=== PATIENT | female | born 1980 | race Asian ===

== ENCOUNTER 2016-08-29 06:54 | Inpatient (IN) | payer BC ==
[~2016-08-29] VITALS: Ht 157.5 cm; Wt 67.0 kg
[2016-08-29] MEDS ORDERED: OXYTOCIN 30U/ 0.9% NaCL 500ML 500 ML IV ONE (07:19)
[2016-08-29] MEDS ORDERED: LACTATED RINGERS 1,000 ML IV SCH (07:19)
[2016-08-29] MEDS ORDERED: OXYTOCIN 30U/ 0.9% NaCL 500ML 500 ML ONE ×2 (07:28→09:09)
[2016-08-29] MEDS ORDERED: NEWBORN KIT ONE (07:28)
[2016-08-29] MEDS ORDERED: MISOPROSTOL 200 MCG TABLET ONE (07:28)
[2016-08-29] MEDS ORDERED: FENTANYL PF 100 MCG/2ML IVPush PRN (07:30)
[2016-08-29 08:28] VITALS: BP 135/85
[2016-08-29] MEDS ORDERED: HYDROcodone/APAP 5/325 TABLET PO PRN ×2 (08:30)
[2016-08-29] MEDS ORDERED: MISOPROSTOL 200 MCG TABLET PR PRN (08:30)
[2016-08-29] MEDS ORDERED: PLEASE ENTER HEIGHT AND WEIGHT MC SCH (08:30)
[2016-08-29] MEDS ORDERED: DOCUSATE 100 MG CAPSULE PO PRN (08:30)
[2016-08-29] MEDS ORDERED: ONDANSETRON 2MG/ML, 2ML IV PRN (08:30)
[2016-08-29] MEDS ORDERED: PLEASE ENTER ALLERGIES MC SCH ×2 (08:30)
[2016-08-29] MEDS ORDERED: METHYLERGONOVINE 0.2 MG/ML IM PRN (08:30)
[2016-08-29] MEDS: PRENATAL VIT/IRON/FA 1 EACH TABLET PO SCH (09:00)
[2016-08-29] MEDS: OXYTOCIN 30U/ 0.9% NaCL 500ML 500 ML IV SCH ×2 (09:38→18:02)
[2016-08-29] MEDS ORDERED: IBUPROFEN 600 MG TABLET ONE (09:41)
[2016-08-29] MEDS: IBUPROFEN 600 MG TABLET PO PRN ×2 (09:47→17:14)
[2016-08-29 10:35] VITALS: BP 125/92
[2016-08-29 12:00] VITALS: BP 127/74
[2016-08-29 15:53] VITALS: BP 109/65
[2016-08-29 20:39] VITALS: BP 122/76
[2016-08-30 01:20] VITALS: BP 108/71
[2016-08-30 03:56] VITALS: BP 117/71
[2016-08-30] MEDS: OXYTOCIN 30U/ 0.9% NaCL 500ML 500 ML IV SCH ×2 (04:02→14:02)
[2016-08-30 07:30] VITALS: BP 109/71
[2016-08-30] MEDS: PRENATAL VIT/IRON/FA 1 EACH TABLET PO SCH (09:02)
[2016-08-30 20:00] VITALS: BP 117/76
== END 2016-08-30 21:20 | disposition home or self-care (01) | DRG 775 ==
LOC: LDOP 06:54 → LDIP 07:23 → 2NW 10:17
PROVIDERS: ADMIT Obstetrics & Gynecology; ATTEND Obstetrics & Gynecology
PROC: 10E0XZZ Delivery of Products of Conception, External Approach (ICD-10-PCS; principal; 2016-08-29)
DX: O80 Encounter for full-term uncomplicated delivery (principal); Z37.0 Single live birth; Z3A.39 39 weeks gestation of pregnancy
CPT/HCPCS: 36415; 85025; 86850; 86900; J2590; J7120